=== PATIENT | female | born 1965 | race Caucasian/White ===

== ENCOUNTER 2016-08-31 22:00 | Emergency (ER) | payer MEDICAID, OTHER ==
[~2016-08-31] VITALS: Ht 160 cm; Wt 90.2 kg
[2016-08-31 22:02] VITALS: BP 136/88
[2016-08-31] MEDS ORDERED: PROPARACAINE OPHTH 0.5%, 15ML EACHEYE ONE (23:30)
[2016-08-31] MEDS ORDERED: FLUORESCEIN OPHTHALMIC 1 MG STRIP EACHEYE ONE (23:30)
== END 2016-08-31 23:49 | disposition home or self-care (01) ==
LOC: ED 23:43
DX: H01.005 Unspecified blepharitis left lower eyelid (principal); H05.012 Cellulitis of left orbit; Z90.710 Acquired absence of both cervix and uterus; Z90.49 Acquired absence of other specified parts of digestive tract; Z87.891 Personal history of nicotine dependence
CPT/HCPCS: 99283

== ENCOUNTER 2017-07-20 14:17 | Emergency (ER) | payer MEDICAID, OTHER ==
[~2017-07-20] VITALS: Ht 160 cm; Wt 85.3 kg
[2017-07-20 14:19] VITALS: BP 131/86
[2017-07-20] MEDS ORDERED: PROPARACAINE OPHTH 0.5%, 15ML EACHEYE ONE (14:30)
[2017-07-20] MEDS ORDERED: FLUORESCEIN OPHTHALMIC 1 MG STRIP EACHEYE ONE (14:30)
[2017-07-20] MEDS ORDERED: FLUORESCEIN OPHTHALMIC 1 MG STRIP ONE (14:30)
[2017-07-20] MEDS ORDERED: PROPARACAINE OPHTH 0.5%, 15ML ONE (14:30)
[2017-07-20] MEDS ORDERED: EYE WASH SOLUTION 120ML ONE (14:58)
[2017-07-20] MEDS ORDERED: DIPH,PERTUSS(ACELL),TET VAC/PF 0.5 ML IM-VACC ONE ×2 (15:20→15:30)
[2017-07-20] MEDS ORDERED: ARTIFICIAL TEARS OINT 3.5 GM EACHEYE PRN (15:30)
== END 2017-07-20 16:15 | disposition home or self-care (01) ==
LOC: ED 15:00
DX: S05.01XA Injury of conjunctiva and corneal abrasion without foreign body, right eye, initial encounter (principal); Z87.891 Personal history of nicotine dependence; X58.XXXA Exposure to other specified factors, initial encounter; Y93.89 Activity, other specified; Y99.8 Other external cause status; Y92.89 Other specified places as the place of occurrence of the external cause
CPT/HCPCS: 90471; 90715; 99284